=== PATIENT | male | born 1985 | race Caucasian/White ===

== ENCOUNTER 2018-06-03 20:07 | Emergency (ER) | payer SELFPAY ==
[~2018-06-03] VITALS: Ht 182.9 cm; Wt 77.1 kg
[2018-06-03 20:30] VITALS: BP 132/85
[2018-06-03] MEDS ORDERED: IBUPROFEN600 MG ORAL (21:00)
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
[2018-06-03 21:08] VITALS: BP 132/85
== END 2018-06-03 21:15 | disposition home or self-care (01) ==
LOC: EMR 21:13
DX: S16.1XXA Strain of muscle, fascia and tendon at neck level, initial encounter (principal); V43.62XA Car passenger injured in collision with other type car in traffic accident, initial encounter; Y92.410 Unspecified street and highway as the place of occurrence of the external cause
CPT/HCPCS: 99283